=== PATIENT | female | born 1980 | race Caucasian/White ===

== ENCOUNTER 2022-07-20 10:12 | Emergency (ER) | payer OTHER, SELFPAY ==
[2022-07-20 10:29] VITALS: BP 130/87; PULSE 73; RESP 16; TEMP 36.6; O2SAT 100
[2022-07-20 10:32] VITALS: BP 130/87; PULSE 73; RESP 16; TEMP 36.6; O2SAT 100
--- NOTE | 2022-07-20 10:57 | ED.ABDPAIN ---
HPI - Abdominal Pain General Chief Complaint: Nausea/Vomiting/Diarrhea Stated Complaint: abd pain/n/d Time Seen by Provider: 07/20/22 10:57 Related Data Home Medications Medication Instructions Recorded Confirmed methimazole 5 mg tablet 5 mg PO DAILY 07/20/22 07/20/22 tirzepatide 5 mg/0.5 mL 5 mg subcut WEEKLY 07/20/22 07/20/22 subcutaneous pen injector (Mounjaro) Course Vital Signs Vital signs: Vital Signs Temperature 97.9 F 07/20/22 10:29 Pulse Rate 73 07/20/22 10:29 Respiratory Rate 16 07/20/22 10:29 Blood Pressure 130/87 07/20/22 10:29 Pulse Oximetry 100 07/20/22 10:29 Oxygen Delivery Room Air 07/20/22 10:29 Temperature 97.9 F 07/20/22 10:32 Pulse Rate 73 07/20/22 10:32 Respiratory Rate 16 07/20/22 10:32 Blood Pressure 130/87 07/20/22 10:32 Pulse Oximetry 100 07/20/22 10:32 Oxygen Delivery Room Air 07/20/22 10:32 Discharge Plan Discharge Prescriptions: No Action methimazole 5 mg tablet 5 mg PO DAILY Mounjaro 5 mg/0.5 mL pen injector 5 mg SUBCUT WEEKLY Follow-up/Referrals: UNKNOWN,DOCTOR [Primary Care Provider] -
--- NOTE | 2022-07-20 11:06 | ED.NAVMDI ---
HPI - Nausea/Vomiting/Diarrhea General Chief complaint: Nausea/Vomiting/Diarrhea Stated complaint: abd pain/n/d Time Seen by Provider: 07/20/22 10:57 History of Present Illness HPI Narrative: Monica June is a 41-year-old female with a PMH of obesity [facility] a doing a little celebration on Monjero medication for weight loss (off label) with Dr. STUART and developed nausea and diarrhea which she was told could be a symptom of this increased dose she called her doctor yesterday but did not get a call back in the office and did not have any medication to treat symptoms Related Data Home Medications Medication Instructions Recorded Confirmed methimazole 5 mg tablet 5 mg PO DAILY 07/20/22 07/20/22 tirzepatide 5 mg/0.5 mL 5 mg subcut WEEKLY 07/20/22 07/20/22 subcutaneous pen injector (Mounjaro) Allergies Allergy/AdvReac Type Severity Reaction Status Date / Time No Known Allergies Allergy Verified 07/20/22 10:59 Review of Systems Review of Systems: CONSTITUTIONAL: Denies fever, chills, sweats. EYES: Denies visual changes, redness, discharge. ENT: Denies rhinorrhea, congestion, sore throat, otalgia. CARDIOVASCULAR: Denies chest pain, palpitations, edema. RESPIRATORY: Denies dyspnea, wheezing, cough GASTROINTESTINAL: Denies abdominal pain, nausea, vomiting, diarrhea. GENITOURINARY: Denies dysuria, hematuria, abnormal discharge SKIN: Denies rash or itching. NEUROLOGIC: Denies numbness, or focal weakness. PSYCHIATRIC: Denies anxiety or depression. Nausea and diarrhea believed to be caused by weight loss medication PMFSH Social History Social History (Updated 07/20/22 @ 11:08 by Dora Bansal CNP) Smoking status: Never smoker Alcohol intake: never Comments At time of signature, I agree with nursing past medical, surgical, social and family history. There is no relevant family history pertinent to the presenting complaint. Exam Narrative: GENERAL: This is a well-nourished, well-developed patient, in mild distress. HEAD: normocephalic, atraumatic. EYES:Sclera clear/white. Vision is grossly intact. EARS: External ears normal, Hearing grossly intact. NOSE: External nose normal without nasal discharge, nares without redness, no rhinorrhea. THROAT: Mucous membranes moist NECK: Neck supple, non-tender CARDIOVASCULAR: Regular rate and rhythm without murmurs, gallops, or rubs. RESPIRATORY: Clear to auscultation. Breath sounds equal bilaterally. No wheezes, rales, or rhonchi. GASTROINTESTINAL: Abdomen soft, denies tenderness SKIN: warm, intact with no suspicious lesions or rash, good texture and turgor. NEURO: awake, alert, and oriented to person, place and time. There were no obvious focal neurologic abnormalities. Steady gait EXTREMITIES: Normal range of motion. BACK: Nontender without deformity Course Course Emergency Course: Patient taking an off label version of diabetic medication for weight loss and has developed nausea and diarrhea with dosage elevation Here to get some Zofran so that she is able to tolerate fluids Started on Zofran and Bentyl Level of Care: Express Care Visit Vital Signs Vital signs: Vital Signs Temperature 97.9 F 07/20/22 10:29 Pulse Rate 73 07/20/22 10:29 Respiratory Rate 16 07/20/22 10:29 Blood Pressure 130/87 07/20/22 10:29 Pulse Oximetry 100 07/20/22 10:29 Oxygen Delivery Room Air 07/20/22 10:29 Temperature 97.9 F 07/20/22 10:32 Pulse Rate 73 07/20/22 10:32 Respiratory Rate 16 07/20/22 10:32 Blood Pressure 130/87 07/20/22 10:32 Pulse Oximetry 100 07/20/22 10:32 Oxygen Delivery Room Air 07/20/22 10:32 MDM - Nausea/Vomiting/Diarrhea Differential Diagnosis Differential diagnosis: Likely gastroenteritis, dehydration and other (Side effect of drug) Critical Care Time Critical Care Time Critical Care Time: No Discharge Plan Discharge Clinical Impression: Drug-induced nausea and vomiting Isa
== END 2022-07-20 11:25 | disposition home or self-care (01) ==
PROVIDERS: Emergency Provider Nurse Practitioner
DX: R11.2 Nausea with vomiting, unspecified (principal); T50.995A Adverse effect of other drugs, medicaments and biological substances, initial encounter; E66.9 Obesity, unspecified; Z68.39 Body mass index [BMI] 39.0-39.9, adult; E05.00 Thyrotoxicosis with diffuse goiter without thyrotoxic crisis or storm
CPT/HCPCS: 99203; G0463

== ENCOUNTER 2022-11-03 10:39 | Emergency (ER) | payer OTHER, SELFPAY ==
[2022-11-03 11:34] VITALS: BP 109/62; PULSE 88; RESP 20; TEMP 39; O2SAT 99
--- NOTE | 2022-11-03 12:37 | ED.URI ---
HPI - URI/Sore Throat General Chief Complaint: Upper Respiratory Infection Stated Complaint: SOB, Bodyaches Time Seen by Provider: 11/03/22 12:37 Source: patient Mode of arrival: ambulatory Limitations: no limitations History of Present Illness HPI Narrative: 42-year-old female presents with complaint of headache, cough, congestion, body aches, chills since Friday night. Reports fatigue. Taking NyQuil at night. States she did not know that she had a fever until arrival to [facility]. Denies nausea vomiting diarrhea. Denies chest pain and shortness of breath. Flu vaccinated. All systems reviewed and negative except as noted above. Related Data Home Medications Medication Instructions Recorded Confirmed methimazole 5 mg tablet 5 mg PO DAILY 07/20/22 11/03/22 tirzepatide 5 mg/0.5 mL 5 mg subcut WEEKLY 07/20/22 11/03/22 subcutaneous pen injector (Mounjaro) Allergies Allergy/AdvReac Type Severity Reaction Status Date / Time No Known Allergies Allergy Verified 11/03/22 11:02 Review of Systems Review of Systems: CONSTITUTIONAL: Denies fever . Reports chills, and sweats. EYES: Denies visual changes, redness, or discharge. ENT: report rhinorrhea, congestion. Denies sore throat, or otalgia. CARDIOVASCULAR: Denies chest pain, palpitations, or edema. RESPIRATORY: reports cough. Denies dyspnea. GASTROINTESTINAL: Denies abdominal pain, nausea, vomiting, or diarrhea. GENITOURINARY: Denies dysuria or hematuria. SKIN: Denies rash or itching. MUSCULOSKELETAL: Denies back pain, joint pain. Reports myalgia. NEUROLOGIC: Denies headache, numbness, or weakness. PSYCHIATRIC: Denies anxiety or depression. All other systems reviewed are negative, except as documented in HPI. PMFSH Social History Social History (Updated 07/20/22 @ 11:08 by Dora Bansal, RECORD PRODUCER) Smoking status: Never smoker Alcohol intake: never Comments At time of signature, agree with nursing past medical, surgical, social and family history. There is no relevant family history pertinent to the presenting complaint. Exam Narrative: GENERAL: This is a well-nourished, well-developed patient, in no apparent distress. HEAD: normocephalic, atraumatic. EYES: PERRL. Sclera clear/white. Vision is grossly intact. EARS: External ears normal, auditory canals clear and without drainage, TMs normal without perforation. Hearing grossly intact. NOSE: External nose normal with clear nasal drainage, erythema tenderness. No swelling denies. THROAT: Mucous membranes moist, posterior pharynx clear. NECK: Neck supple, non-tender without lymphadenopathy, masses or thyromegaly. CARDIOVASCULAR: Regular rate and rhythm without murmurs, gallops, or rubs. RESPIRATORY: Clear to auscultation. Breath sounds equal bilaterally. No wheezes, rales, or rhonchi. SKIN: warm, Dry, intact with no suspicious lesions or rash, good texture and turgor. NEURO: awake, alert, and oriented to person, place and time. There were no obvious focal neurologic abnormalities. EXTREMITIES: No joint tenderness, effusion, or edema noted. Course Course Level of Care: Express Care Visit Vital Signs Vital signs: Vital Signs Temperature 39.0 C H 11/03/22 11:34 Pulse Rate 88 11/03/22 11:34 Respiratory Rate 20 11/03/22 11:34 Blood Pressure 109/62 11/03/22 11:34 Pulse Oximetry 99 11/03/22 11:34 Temperature 39.0 C H 11/03/22 11:34 Pulse Rate 88 11/03/22 11:34 Respiratory Rate 20 11/03/22 11:34 Blood Pressure 109/62 11/03/22 11:34 Pulse Oximetry 99 11/03/22 11:34 Reviewed, patient took 1 g Tylenol while in exam room that she found her purse. MDM - URI/Sore Throat MDM Narrative Medical decision making narrative: Patient is aware of diagnosis, understands and agrees to treatment plan. Anticipatory guidance given. Patient agrees to follow-up as directed and is aware of reasons to seek care at the emergency department. Portions of this record ma
== END 2022-11-03 12:43 | disposition home or self-care (01) ==
PROVIDERS: Emergency Provider Nurse Practitioner Family
DX: J10.1 Influenza due to other identified influenza virus with other respiratory manifestations (principal); Z20.822 Contact with and (suspected) exposure to COVID-19
CPT/HCPCS: 87426; 87804; 99213; C9803; G0463

== ENCOUNTER 2023-10-18 01:48 | Emergency (ER) | payer OTHER, SELFPAY ==
--- NOTE | ~2023-10-18 | CT_ITS ---
EXAMINATION: CT abdomen pelvis w con INDICATION: Abdominal pain TECHNIQUE: Computed tomographic images of the abdomen and pelvis were obtained after the administrati on of 100 cc of Omnipaque 350 intravenous contrast. The dose-length product (DLP) was 474.98 mGy-cm. Automated exposure control and iterative reconstruction technique were employed. COMPARISON: None available FINDINGS: The lung bases are clear. The heart size is normal. The liver, spleen, pancreas, gallbladde r, and adrenal glands are normal. The right kidney is unremarkable. There is a 4 mm cyst of the left kidney. No pathologically enlarged abdominal or pelvic lymph nodes are identified. No free intraperit ronquillo gas or evidence of bowel obstruction. The appendix is normal. There is subtle fat stranding in the pelvis near the urinary bladder of unclear significance given the patient's normal urinalysis. IMPRESSION: 1. Subtle fat stranding in the pelvis near the urinary bladder of unclear significance given the jostin ent's normal urinalysis. Reviewed, dictated and finalized at location F. PROGRAMMER IMPRESSION: 1. Subtle fat stranding in the pelvis near the urinary bladder of unclear signi ficance given the patient's normal urinalysis.
[2023-10-18 01:51] VITALS: BP 148/93; PULSE 69; RESP 14; TEMP 36.4; O2SAT 100
[2023-10-18 02:36] LABS: Basophils Percent Auto 0.5 % (0.2-1.2); Eosinophils Absolute Auto 0.2 K/mm3 (0-0.3); Eosinophils Percent Auto 3.2 % (0-4.4); Hematocrit 39.2 % (37.0-47.0); Hemoglobin 12.5 g/dL (12.0-15.0); Immature Granulocyte Absolute 0.03 K/mm3 (0.00-0.031); Immature Granulocyte Percent A 0.5 % (0-0.5); Lymphocytes Absolute Auto 3.03 K/mm3 (0.9-3.2); Lymphocytes Percent Auto 45.7 % (18.3-44.2); Mean Corpuscular HGB Conc 31.9 g/dl (32-36); Mean Corpuscular Hemoglobin 29.1 pg (26-34); Mean Corpuscular Volume 91.4 fl (80-100); Mean Platelet Volume 9.6 fl (7.4-10.4); Monocytes Absolute Auto 0.4 K/mm3 (0.1-0.6); Monocytes Percent Auto 5.7 % (2.6-8.5); Neutrophils Percent Auto 44.4 % (45.5-73.1); Platelet Count Result 274 k/mm3 (150-375); Red Blood Count 4.29 M/mm3 (4.2-5.4); Red Cell Distribution Width 12.5 % (11.5-14.5); White Blood Count 6.6 K/mm3 (4.5-10.0)
[2023-10-18 02:41] LABS: Appearance Urine Cloudy (Clear); Bacteria Urine Rare /hpf; Bilirubin Urine Negative (Negative); Blood Urine Negative (Negative); Color Urine Yellow (Yellow); Glucose Urine UA Negative (Negative); Ketones Urine Negative (Negative); Leukocyte Esterase Ur Negative LEU/UL (Negative); Nitrate Urine Negative (Negative); Non Pathogenic Casts 0-2; Protein Urine Negative (Negative); Specific Grav Ur 1.012 (1.001-1.035); Squamous Epithelial Cell Urine Occasional /hpf (Few); Urobilinogen Urine 0.2 mg/dL (<2.0); WBC Urine 0-5 /hpf
[2023-10-18 02:44] LABS: Add Urine Microscopic? YES
[2023-10-18 02:50] LABS: Alanine Aminotransferase 16 U/L (6-35); Albumin Level 4.2 g/dL (3.5-5.1); Alkaline Phosphatase 50 U/L (38-126); Anion Gap 7 mmol/L (8-16); Aspartate Amino Transferase 28 U/L (14-36); Bilirubin,Total 0.3 mg/dL (0.2-1.3); Blood Urea Nitrogen 13 mg/dL (7-17); Calcium 8.9 mg/dL (8.4-10.2); Carbon Dioxide 27 mmol/L (22-30); Chloride 105 mmol/L (98-107); Estimated CRCL calculation 74 ml/min; Estimated Glomerular Filt Rate > 60; Glucose 94 mg/dL (65-110); Lipase 112 U/L (23-300); Potassium 3.4 mmol/L (3.4-5.0); Sodium 139 mmol/L (137-145)
[2023-10-18] MEDS: ACETAMINOPHEN 500 MG TABLET 1000 MG PO (03:37)
[2023-10-18] MEDS: KETOROLAC 15 MG/ML VIAL (*BKC) IV PUSH (03:38)
[2023-10-18] MEDS: HYDROmorphone HCL INJ (*CRX) 1 MG/ML SYR 0.5 MG IV PUSH (03:38)
--- NOTE | 2023-10-18 04:39 | ED.GENADULT ---
HPI - General Adult General Chief complaint: Abdominal Pain Stated complaint: abd pain Time Seen by Provider: 10/18/23 01:53 History of Present Illness HPI narrative: This is a 43 female history with a history of ovarian cysts presenting with right lower quadrant abdominal/pelvic pain. Started 9:00 p.m. while she was sleeping. It is stabbing pain that has been intermittent and comes and goes. She says this feels like when she has ovarian cysts past. Improved heat pack normal exacerbating symptoms. She notes she also has some cloudy urine without dysuria urgency or frequency. No nausea vomiting or diarrhea. No vaginal discharge irritation or concern for STDs. Patient not take anything for pain control. At the time of my exam the patient's pain is resolved. Related Data Home Medications Medication Instructions Recorded Confirmed methimazole 5 mg tablet 5 mg PO DAILY 07/20/22 11/03/22 tirzepatide 5 mg/0.5 mL 5 mg subcut WEEKLY 07/20/22 11/03/22 subcutaneous pen injector (Joseunmekhi) Allergies Allergy/AdvReac Type Severity Reaction Status Date / Time No Known Allergies Allergy Verified 11/03/22 11:02 [facility] Past Medical History Medical History Ovarian cyst Social History Social History Smoking status: Never smoker Alcohol intake: never Exam Narrative: APPEARANCE: No apparent distress. Head: atraumatic. EYES: EOMI, NOSE: Atraumatic NECK: Trachea midline RESPIRATORY: No increased rate of breathing CARDIOVASCULAR: RRR, ABDOMINAL: Soft, nontender with no guarding or rebound, no CVA tenderness MUSCULOSKELETAl: No obvious deformities NEURO: Alert. Moving 4/4 extremities SKIN:: Warm, dry. Normal color PSYCHIATRIC: Normal affect Course Vital Signs Vital signs: Vital Signs Temperature 97.6 F 10/18/23 01:51 Pulse Rate 69 10/18/23 01:51 Respiratory Rate 14 10/18/23 01:51 Blood Pressure 148/93 H 10/18/23 01:51 Pulse Oximetry 100 10/18/23 01:51 Oxygen Delivery Room Air 10/18/23 01:51 Temperature 97.6 F 10/18/23 01:51 Pulse Rate 69 10/18/23 01:51 Respiratory Rate 14 10/18/23 01:51 Blood Pressure 148/93 H 10/18/23 01:51 Pulse Oximetry 100 10/18/23 01:51 Oxygen Delivery Room Air 10/18/23 01:51 Medical Decision Making MDM Narrative Medical decision making narrative: -Course: 43-year-old female presenting with right lower quadrant pain. Laboratory studies were within normal limits. CT abdomen pelvis showed some fluid-filled loops of bowels could be due to enteritis. No other acute findings. Patient's pain was controlled emergency department. I discussed the possibility of ovarian cyst/ovarian torsion with the patient and offered a transvaginal ultrasound but as the patients pain had completely improved she was comfortable going home and following up with her primary care physician/OB. She has been given return precautions if she redevelops pain or fevers. 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 Metabolic panel unremarkable. Urine not indicative of infection, 3-[address] abdomen pelvis showed mild fluid-filled small bowel in the pelvis which correlates for mild enteritis -Interventions: 2 L normal saline, Toradol Dilaudid and Tylenol -Shared decision making / Disposition: Discharged Vital Signs Vital Signs: Vital Signs Temperature 97.6 F 10/18/23 01:51 Pulse Rate 69 10/18/23 01:51 Respiratory Rate 14 10/18/23 01:51 Blood Pressure 148/93 H 10/18/23 01:51 Pulse Oximetry 100 1
[2023-10-18 05:07] VITALS: BP 105/57; PULSE 71; RESP 17; O2SAT 98
== END 2023-10-18 05:09 | disposition home or self-care (01) ==
PROVIDERS: Emergency Provider Emergency Medicine
DX: R10.31 Right lower quadrant pain (principal); Z79.85 Long-term (current) use of injectable non-insulin antidiabetic drugs
CPT/HCPCS: 36415; 74177; 80053; 81001; 81025; 83690; 85025; 96374; 96375; 99284; A9270; J1170; J1885; Q9967